=== PATIENT | male | born 1955 | race Caucasian/White ===

== ENCOUNTER → 2017-01-20 | Outpatient (CLI) | payer MEDICARE, OTHER ==
--- NOTE | 2017-01-20 17:05 | US ---
EXAMINATION TYPE: US kidneys/renal and bladder DATE OF EXAM: 01/20/2017 COMPARISON: Previous study dated 08/30/2013. CLINICAL HISTORY: R94.4 Abnormal Renal Function Tests. diabetic, left flank pain EXAM MEASUREMENTS: Right Kidney: 9.0 x 5.1 x 4.2 cm Left Kidney: 10.8 x 5.6 x 5.9 cm Post Void Residual Volume: 10.0 mL Right Kidney: No hydronephrosis or masses seen Left Kidney: No hydronephrosis or masses seen Bladder: wnl Bilateral Jets seen: Yes Normal Post Void Residual: Yes There is a 3 mm, nonshadowing echogenic focus in the lower pole of the left kidney. This may represen t a nonshadowing, nonobstructing calculus. It may also represent a tiny angiomyolipoma. IMPRESSION: 3 MM NONSHADOWING CALCULUS VERSUS TINY ANGIOMYOLIPOMA, LEFT KIDNEY.
== END | disposition home or self-care (01) ==
LOC: RADUSWWP 15:38
PROVIDERS: ATTEND Internal Medicine
DX: N20.0 Calculus of kidney (principal)
CPT/HCPCS: 76770

== ENCOUNTER → 2017-09-03 | Outpatient (CLI) | payer MEDICARE, OTHER ==
--- NOTE | 2017-09-03 09:50 | US ---
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 left renal calculus EXAM MEASUREMENTS: Right Kidney: 9.3 x 4.1 x 4.0 cm Left Kidney: 10.7 x 4.6 x 6.0 cm Post Void Residual Volume: 10.7 mL Right Kidney: No hydronephrosis or masses seen Left Kidney: Hyperechoic focus with size = 0.2 x 0.3 x 0.2cm probable minimal shadowing. This is francie ear in orientation. Bladder: wnl Bilateral Jets seen: Yes Normal Post Void Residual: Yes IMPRESSION: 1. 3 mm probable nonobstructing left renal calculus. Angiomyolipoma as questioned on the prior is con sidered much less likely given the morphology and echogenicity. 2. No evidence of hydronephrosis within either kidney.
== END | disposition home or self-care (01) ==
LOC: RADUSWWP 08:13
PROVIDERS: ATTEND Urology
DX: D41.02 Neoplasm of uncertain behavior of left kidney (principal)
CPT/HCPCS: 76770

== ENCOUNTER 2018-02-26 06:40 | Day surgery (SDC) | payer MEDICARE, OTHER ==
[2018-02-24 15:56] VITALS: BMI 29.7
[~2018-02-26 06:40] MED LIST: LACTATED RINGERS 1,000 ML IV SCH
[2018-02-26 07:14] LABS: Glucose,Whole Blood 78 mg/dL (75-99)
[2018-02-26] MEDS ORDERED: LACTATED RINGERS 1,000 ML IV ONE (07:17)
[2018-02-26] MEDS ORDERED: PROPOFOL 10 MG/ML 20 ML VIAL IV ONE (07:38)
--- NOTE | 2018-02-26 08:18 | P.PCN ---
Date of Procedure: 02/26/18 Procedure(s) Performed: Procedure: 1. Esophagogastroduodenoscopy and biopsy. 2. Total colonoscopy. Preoperative diagnosis: Iron deficiency anemia. Postoperative diagnosis: 1. Hiatal hernia with no obvious esophagitis or complicated reflux disease. 2. Mild antral gastritis with no ulcers or gastric outlet obstruction. 3. Biopsies obtained from the duodenum, antrum and esophagus. 4. Diffuse diverticulosis of the colon with no evidence of acute diverticulitis, strictures, polyps or cancer. 5. No angiodysplasia or other potential sources of bleeding or any evidence of bleeding at the time of this exam. Preparation: HalfLytely prep. Sedation: Was provided by anesthesia. Brief clinical history: The patient is a 62-year-old male who is scheduled for this evaluation for investigating iron deficiency anemia. The patient has no overt bleeding. He had a prior colonoscopy around 4 or 5 years ago. He has no abdominal complaints, change in bowel habits or any upper GI complaints. Procedure: With the patient on his left lateral decubitus position and after informed consent and adequate sedation, I passed the Olympus-GIF 160 video upper endoscope through the cricopharyngeus down the esophagus. GE junction was around 31 cm from the incisors and there was a moderately sized hiatal hernia but there was no obvious esophagitis or any evidence of complicated reflux disease. The endoscope was then passed into the stomach which was insufflated with air and inspected in detail including the retroflex view in the cardia. There was some mottling and erythema in the antrum but no ulcers or erosions. Pyloric channel, duodenal bulb, post bulbar area and descending duodenum appeared within normal limits. Because of his anemia, I obtained biopsies from the duodenum in addition to biopsies from the antrum and esophagus then the endoscope was withdrawn and I proceeded to do colonoscopy. Perianal area did not show any fissures or fistulas. There were no masses felt on digital rectal examination. The Olympus CFQ 160L video colonoscope was then inserted in the rectum in the usual fashion and advanced to the cecum. There was diffuse diverticulosis noted with multiple diverticular orifices seen scattered along the length of the bowel wall but there was no evidence of acute diverticulitis or strictures. The mucosa appeared healthy. No polyps or tumors were seen or any angiodysplasia. I retroflexed the endoscope in the rectum before the endoscope was withdrawn. The patient tolerated the procedure well. Plan: The patient was reassured. Will consider capsule endoscopy to complete his workup. I would keep you updated on his progress.
[2018-02-26 08:39] VITALS: PULSE 60
[2018-02-26 08:49] VITALS: BP 143/88; RESP 18
== END 2018-02-26 09:22 | disposition home or self-care (01) ==
LOC: ORWHC2ENDO 06:40
DX: K21.0 Gastro-esophageal reflux disease with esophagitis (principal); K31.9 Disease of stomach and duodenum, unspecified; K57.30 Diverticulosis of large intestine without perforation or abscess without bleeding; K44.9 Diaphragmatic hernia without obstruction or gangrene; D50.9 Iron deficiency anemia, unspecified; I10 Essential (primary) hypertension; E78.5 Hyperlipidemia, unspecified; E11.9 Type 2 diabetes mellitus without complications; Z86.73 Personal history of transient ischemic attack (TIA), and cerebral infarction without residual deficits; N40.0 Benign prostatic hyperplasia without lower urinary tract symptoms; Z79.84 Long term (current) use of oral hypoglycemic drugs; Z79.82 Long term (current) use of aspirin; Z79.899 Other long term (current) drug therapy
CPT/HCPCS: 88305; 45378; 43239; J2704